=== PATIENT | female | born 1995 | race Caucasian/White ===

== ENCOUNTER 2017-07-29 09:54 | Day surgery (SDC) | payer OTHER ==
--- NOTE | 2017-07-29 11:19 | Operative Note ---
Upper GI Endoscopy Procedure date: 07/29/17 Date of : [birth year] Procedure:Upper GI Endoscopy Esophagogastroduodenoscopy with cold biopsies Indications: Ms. Spence is a 22-year-old female with dyspepsia. She reports epigastric abdominal pain and discomfort with bloating, nausea, early satiety and some burping. Her symptoms have improved with Esomeprazole. She does have some heartburn and reflux. She reports no dysphagia. She does have moderate weight loss of 45 pounds since December 2016. This started out as intentional weight loss but then she had reduced appetite with some postprandial vomiting. The patient also has IBS/functional bowel disease with alternating diarrhea and constipation. She does have symptoms of urgency and frequency at times. She does state that PPI therapy/Esomeprazole (generic Nexium) results in some constipation. The patient did have some rectal bleeding and possible melena that has occurred up to 5 times since March 2017. This is her first upper endoscopy performed for diagnostic purposes. Her blood work from June 13, 2017 showed normal complete blood count, complete metabolic panel, C-reactive protein and sedimentation rate. The patient had normal vitamin D and B12 levels. Her celiac testing and IBD serologies were normal and her iron studies were normal. She had an negative H. pylori antibodies. Performing Provider: Manuela Lyles MD Referring Provider: Ulysses Spence M.D. Sedation: Fentanyl 200 mg IV/Versed 11 mg IV Procedure: Prior to the procedure, a history and physical exam was performed, and patients medications and allergies were reviewed. The risks and benefits of the procedure and the sedation options and risks were discussed with the patient. All questions were answered and informed consent was obtained. The patient was brought to the procedure room. Patient identification and proposed procedure were verified by the physician and the nurse. The patient was placed in a left lateral decubitus position and the scope was passed under direct vision. Throughout the procedure, the patient's blood pressure, pulse, and oxygen saturations were monitored continuously. The endoscope was introduced through the mouth, and advanced to the second part of duodenum. The upper GI endoscopy was accomplished without difficulty. The patient tolerated the procedure well. Findings: The scope was passed directly into the upper esophagus and advanced to the third portion of the duodenum. The post bulbar duodenum and duodenal bulb were normal with normal mucosa and conniventes. 4 biopsies were taken from the post bulbar duodenum and duodenal bulb to confirm no celiac disease and sent for histology. The scope was withdrawn through a normal duodenal bulb and pylorus into the stomach. There was some linear erythema of the prepyloric antrum consistent with linear reactive antritis/gastritis which is mild. The remainder of the antrum, body and fundus of the stomach were grossly normal. Upon retroflexion there was no hiatal hernia. 2 biopsies were taken in the antrum and along the lesser curvature for histology. The scope was then withdrawn into the esophagus. There was no evidence of reflux esophagitis or Colbert's. The remainder of the esophageal mucosa was normal. Immediate complications: None EBL (ml): 0 Impression: 1. Mild linear reactive gastritis/antritis Recommendations: I will follow up the biopsies. I do feel that the patient has functional dyspepsia and functional bowel disease with probable SIBO/IBS. We will discuss dietary measures and additional treatment options. I would like for her to follow up again in 12 weeks to ensure clinical improvement. at [id number]
[2017-07-29 13:51] VITALS: BP 111/59
== END 2017-07-29 14:30 | disposition home or self-care (01) ==
LOC: SDC 09:54
PROVIDERS: Internal Medicine Gastroenterology
PROC: 0DB78ZX Excision of Stomach, Pylorus, Via Natural or Artificial Opening Endoscopic, Diagnostic (ICD-10-PCS; 2017-07-29)
PROC: 0DB98ZX Excision of Duodenum, Via Natural or Artificial Opening Endoscopic, Diagnostic (ICD-10-PCS; principal; 2017-07-29 11:00)
DX: K29.60 Other gastritis without bleeding (principal); R10.13 Epigastric pain